=== PATIENT | male | born 1985 | race African-American/Black ===

== ENCOUNTER 2019-06-14 20:59 | Emergency (ER) | payer OTHER ==
[~2019-06-14] VITALS: Ht 188 cm; Wt 82.0 kg
[2019-06-14] MEDS ORDERED: ACETAMINOPHEN 325MG TABLET PO ONE (21:45)
[2019-06-14 23:30] VITALS: BP 119/83
== END 2019-06-14 23:52 | disposition home or self-care (01) ==
LOC: ER 20:59
DX: S16.1XXA Strain of muscle, fascia and tendon at neck level, initial encounter (principal); M54.9 Dorsalgia, unspecified; M25.511 Pain in right shoulder; V89.2XXA Person injured in unspecified motor-vehicle accident, traffic, initial encounter; Z88.2 Allergy status to sulfonamides; Y93.89 Activity, other specified; Y92.89 Other specified places as the place of occurrence of the external cause; Y99.8 Other external cause status
CPT/HCPCS: 71045; 72040; 99283